=== PATIENT | male | born 1985 | race Caucasian/White ===

== ENCOUNTER 2019-01-28 06:39 | Emergency (ER) | payer OTHER ==
[~2019-01-28] VITALS: Ht 180.3 cm; Wt 118.2 kg
[2019-01-28] MEDS ORDERED: epiNEPHrine 1 mg/ml inj IM STA (06:59)
[2019-01-28] MEDS ORDERED: albuterol 2.5 MG/3 ML nebule CONTNEB PRN (07:00)
[2019-01-28] MEDS ORDERED: magnesium 2GM in 50ml NS 50 ML IV ONE (07:00)
[2019-01-28] MEDS ORDERED: methylPREDNISolone sod succ 125mg/2ml vial IV ONE (07:00)
[2019-01-28] MEDS ORDERED: LIDOcaine 0.5% W/epiNEPHrine 1:200,000 50ml vial IJ ONE (07:10)
[2019-01-28] MEDS ORDERED: LIDOcaine 1% W/epiNEPHrine 1:200,000 10ml vial IJ ONE (07:15)
[2019-01-28 07:23] LABS: BASOPHILS # (AUTO) 0.1 X10'3 (0-0.2); BASOPHILS % (AUTO) 0.3 % (0-1); EOSINOPHILS # (AUTO) 0.4 X10'3 (0-0.9); EOSINOPHILS % (AUTO) 2.3 % (0-6); HEMATOCRIT 43.2 % (42.0-52.0); LYMPHOCYTES # (AUTO) 2.3 X10'3 (1.1-4.8); LYMPHOCYTES % (AUTO) 13.4 % (21-51); MEAN CORPUSCULAR HEMOGLOBIN 30.9 PG (27.0-31.0); MEAN CORPUSCULAR HGB CONC 34.8 g/dL (33.0-36.5); MEAN CORPUSCULAR VOLUME 88.9 FL (78-98); MEAN PLATELET VOLUME 8.6 FL (7.4-10.4); MONOCYTES # (AUTO) 1.2 X10'3 (0-0.9); MONOCYTES % (AUTO) 7.1 % (2-12); NEUTROPHILS # (AUTO) 13.3 X10'3 (1.8-7.7); NEUTROPHILS % (AUTO) 76.9 % (42-75); PLATELET COUNT 227 X10'3 (140-440); RED BLOOD COUNT 4.86 X10'6 (4.70-6.10); RED CELL DISTRIBUTION WIDTH 13.8 % (11.5-14.5); WHITE BLOOD COUNT 17.2 X10'3 (4.5-11.0)
[2019-01-28 07:32] LABS: PARTIAL THROMBOPLASTIN TIME 26 SECONDS (22-32)
[2019-01-28 07:35] LABS: ALANINE AMINOTRANSFERASE 27 U/L (12-78); ALBUMIN 4.1 G/DL (3.4-5.0); ALBUMIN/GLOBULIN RATIO 1.2 (1.1-1.5); ALKALINE PHOSPHATASE 66 IU/L (46-116); ANION GAP 12 (8-16); ASPARTATE AMINO TRANSFERASE 20 U/L (10-37); BILIRUBIN,TOTAL 0.3 MG/DL (0.1-1.0); BLOOD UREA NITROGEN 16 MG/DL (7-18); CALCIUM 9.1 MG/DL (8.5-10.1); CHLORIDE 104 MMOL/L (99-107); GLUCOSE 115 MG/DL (70-104); POTASSIUM 3.6 MMOL/L (3.5-5.1); SODIUM 139 MMOL/L (135-145); TOTAL CARBON DIOXIDE 23.2 MMOL/L (24-32); TOTAL PROTEIN 7.4 G/DL (6.4-8.2); eGFR 86 ML/MIN
[2019-01-28] MEDS ORDERED: DOXYCYCLINE 100MG CAPSULE PO STA (08:50)
[2019-01-28] MEDS ORDERED: dexamethasone sod phosphate 10mg/ml inj IM STA (08:50)
[2019-01-28] MEDS ORDERED: ALBU8HFA PO (08:54)
[2019-01-28] MEDS ORDERED: DOXY100C43 PO (08:54)
--- NOTE | 2019-01-28 09:13 | NUR ---
breaking primary RN, pt is in bed supine, waved at med during report, VSS stable, no distress observed, awaiting med for DC
[2019-01-28 09:15] VITALS: BP 110/70
== END 2019-01-28 10:15 | disposition home or self-care (01) ==
LOC: ER 06:39
DX: J45.901 Unspecified asthma with (acute) exacerbation (principal); L02.214 Cutaneous abscess of groin; L03.314 Cellulitis of groin; Z88.2 Allergy status to sulfonamides; Z87.891 Personal history of nicotine dependence
CPT/HCPCS: 10060; 36415; 80053; 85025; 85610; 85730; 93005; 94644; 96365; 96366; 96372; 96375; 99285; J0171; J1100; J2930; J3475; 94760

== ENCOUNTER 2019-03-14 05:30 | Emergency (ER) | payer OTHER ==
[~2019-03-14] VITALS: Ht 180.3 cm; Wt 118.2 kg
[2019-03-14 05:40] VITALS: BP 147/94
[2019-03-14] MEDS ORDERED: CLIN-142 PO (06:19)
== END 2019-03-14 06:48 | disposition home or self-care (01) ==
LOC: ER 05:31
DX: L03.314 Cellulitis of groin (principal); J45.909 Unspecified asthma, uncomplicated; Z88.2 Allergy status to sulfonamides; Z79.899 Other long term (current) drug therapy
CPT/HCPCS: 99283